=== PATIENT | female | born 1960 | race Caucasian/White ===

== ENCOUNTER → 2017-11-29 | Outpatient (CLI) | payer OTHER ==
[2017-11-29 10:42] LABS: Basophils % (A) 1 %; Eosinophils # (A) 0.2 k/uL (0-0.7); Eosinophils % (A) 4 %; HCT 41.7 % (34.0-46.0); HGB 14.5 gm/dL (11.4-16.0); Lymphocytes # (A) 1.2 k/uL (1.0-4.8); Lymphocytes % (A) 21 %; MCH 30.7 pg (25.0-35.0); MCHC 34.8 g/dL (31.0-37.0); Monocytes # (A) 0.2 k/uL (0-1.0); Monocytes % (A) 4 %; Neutrophils # (A) 3.9 k/uL (1.3-7.7); Neutrophils % (A) 69 %; Platelet Count 209 k/uL (150-450); RBC 4.74 m/uL (3.80-5.40); RDW 12.8 % (11.5-15.5); WBC 5.7 k/uL (3.8-10.6)
[2017-11-29 10:54] LABS: Anion Gap 9 mmol/L; Blood Urea Nitrogen 12 mg/dL (7-17); Carbon Dioxide 33 mmol/L (22-30); Chloride 100 mmol/L (98-107); Potassium 3.4 mmol/L (3.5-5.1); Sodium 142 mmol/L (137-145)
--- NOTE | 2017-12-05 10:37 | MR ---
EXAMINATION TYPE: MR festusine/lspine wo/w con DATE OF EXAM: 11/29/2017 COMPARISON: Outside CT cervical and lumbar spine September 10, 2016. HISTORY: Lumbosacral spondylosis without myelopathy/ Disc degeneration of cervical spine per order. Headache with neck pain for 16 months causing pain or weakness into both arms per patient. Severe low back pain causing pain and numbness down both legs for 16 months per patient. TECHNIQUE: Multiplanar, multisequence images of the cervical and lumbar spine are performed without and with IV contrast, utilizing 8 mL intravenous Gadavist FINDINGS: C-SPINE: FINDINGS: Coronal images redemonstrate dextroconvex scoliosis centered in the visualized upper thorac ic spine. Sagittal images of the cervical spine show the craniocervical junction to remain within nor mal limits. The cervical and upper thoracic spinal cord is normal in course, caliber, and signal. V ertebral alignment is anatomic. There is redemonstration of artifact from anterior fusion plate and a rtificial disc material C5-C6 level The vertebral body and intravertebral disk heights are felt [employer] above and below surgical levels. No large posterior disc herniations are present. The bone ma rrow signal intensity is within normal limits. No suspicious enhancement is seen. Mild multilevel ant erior spurring is redemonstrated. Axial images at C2-C3 level shows left foraminal disc protrusion causing asymmetric mild to moderate left-sided neural foraminal narrowing. Spinal canal is preserved. Right-sided neural foramen is paten t. Axial images at C3-C4 level show loculated foraminal disc protrusion bilaterally, right greater than left with marginal spurring causing severe bilateral neural foraminal narrowing. There is mild efface ment anterior thecal sac. Axial images at C4-C5 level show right paracentral spur disc complex effacing anterolateral thecal sa c and causing moderate to severe right-sided neural foraminal narrowing near axial image 30. Left-donny ed neural foramen is patent. Axial images at C5-C6 level show artifact from surgical change, spinal canal is well preserved, bilat eral neural foramina are felt patent. Axial images at C6-C7 level are suboptimally evaluated due to significant susceptibility artifact. Axial images at C7-T1 level are felt within normal limits. IMPRESSION: Postsurgical changes C5-C6 level redemonstrated with stable and satisfactory alignment. R edemonstration of degenerative changes causing most significant neural foraminal narrowing bilateral C3-C4 and right C4-C5 level as detailed above. L-SPINE: Sagittal images of the lumbar spine show vertebral body heights and alignment to appear satisfactory. There is redemonstration of artifact from posterior fusion hardware with posterior decompression L4- L5 level and artifact from artificial disc material. There is persistent moderate disc space narrowin g L3-L4 level otherwise the intervertebral discs demonstrate normal heights above surgical levels. Mu ltilevel disc desiccation however is present. Small posterior disc herniation L3-L4 level is noted. T he conus medullaris is slightly lower in position ending superior L2 level without abnormal signal or enhancement are suspicious clumping of lumbosacral nerve roots. Occasional enhancing root identified , nonspecific finding. The bone marrow signal intensity shows some heterogeneity. Axial images show the T12-L1 level to appear within normal limits. Axial images at L1-L2 and L2-L3 levels show mild facet degenerative changes bilaterally with ligament um flavum hypertrophy but the spinal canal is preserved and bilateral neural foramina are patent. Axial images at L3-L4 level show artifact from posterior fusion hardware. There is moderate to severe facet arthropathy and ligament flavum hypertrophy effacing posterior lateral thecal sac and axial im age 13. There is moderate broad-based posterior disc protrusion effacing anterior thecal sac. Spinal canal stenosis is present at this level on axial image 13. There is moderate bilateral neural foramin al narrowing noted. Axial images at L4-L5 level show artifact from fusion hardware. There is spinous process resection. S deny canal is preserved. Bilateral neural foramina are felt patent. Axial images at L5-S1 level show spinal canal to appear preserved. There is lateral heterotopic ossif ication. Bilateral neural foramina are felt patent. IMPRESSION: Postsurgical change L4-L5 level with satisfactory posterior decompression and alignment. Most prominent degenerative changes noted L3-L4 level causing spinal canal stenosis. Further details as noted above.
== END | disposition home or self-care (01) ==
LOC: RADMRIMAIN 10:03
PROVIDERS: ATTEND Neurological Surgery
DX: Z01.818 Encounter for other preprocedural examination (principal); M99.71 Connective tissue and disc stenosis of intervertebral foramina of cervical region; M50.30 Other cervical disc degeneration, unspecified cervical region; M50.21 Other cervical disc displacement, high cervical region; M48.061 Spinal stenosis, lumbar region without neurogenic claudication; M99.73 Connective tissue and disc stenosis of intervertebral foramina of lumbar region; M51.26 Other intervertebral disc displacement, lumbar region; M46.96 Unspecified inflammatory spondylopathy, lumbar region; M47.817 Spondylosis without myelopathy or radiculopathy, lumbosacral region; Z98.1 Arthrodesis status
CPT/HCPCS: 80051; 82565; 84520; 85025; 72156; 72158; A9581